=== PATIENT | female | born 2000 | race African-American/Black ===

== ENCOUNTER 2020-12-26 19:05 | Inpatient (IN) | payer SELFPAY ==
[2020-12-26] MEDS ORDERED: Acetaminophen 325 MG TAB PO PRN (21:15)
[2020-12-26] MEDS ORDERED: Ondansetron PF 4 MG/2 ML Vial IVP PRN (21:15)
[2020-12-26] MEDS ORDERED: Ondansetron ODT 4 MG TAB SL PRN (21:15)
[2020-12-26] MEDS: Sodium Chloride 0.9% 1,000 ML IV SCH (21:25)
[2020-12-26] MEDS ORDERED: Promethazine HCl 25 MG in Sodium Chloride 0.9% 50 ML IVPB PRN (22:29)
[2020-12-26 23:27] VITALS: BMI 20.4
[2020-12-27] MEDS: Sodium Chloride 0.9% 1,000 ML IV SCH ×2 (01:52→05:25)
[2020-12-27 07:28] LABS: #Basophils 0.1 thou/uL (0.0-0.2); #Neutrophils 6.5 thou/uL (1.40-6.50); %Basophils 0.7 % (0.0-1.0); %Eosinophils 0.1 % (0.0-10.0); %Lymphocytes 20.9 % (28.0-48.0); %Monocytes 10.2 % (0.0-4.0); %Neutrophils 68.2 % (31.0-61.0); Hemoglobin 9.4 g/dL (12.0-16.0); Mean Corpuscular HGB CONC 33.8 g/dL (32.0-36.0); Mean Corpuscular Hemoglobin 31.5 pg (25.0-35.0); Mean Platelet Volume 7.5 fL (7.4-10.4); Platelet Count 232 thou/uL (130-400); RBC Distribution Width 12.4 % (11.5-14.5); Red Blood Cell (RBC) Count 2.99 mill/uL (4.00-5.20); White Blood Cell (WBC) Count 9.5 thou/uL (4.8-10.8)
[2020-12-27 07:53] LABS: ALT (SGPT) 28 U/L (8-55); AST (SGOT) 63 U/L (5-34); Alkaline Phosphatase 53 U/L (40-100); Anion Gap 8 mmol/L (10-20); BUN (Urea Nitrogen) 5 mg/dL (7.0-18.7); Bilirubin, Total 0.6 mg/dL (0.2-1.2); Calc. Creatinine Clearance 129 mL/min (70-130); Calcium 7.3 mg/dL (7.8-10.44); Carbon Dioxide 24 mmol/L (22-29); Chloride 112 mmol/L (98-107); Globulin 2.3 g/dL (2.4-3.5); Glucose 81 mg/dL (70-105); Magnesium 1.5 mg/dL (1.7-2.2); Phosphorus 2.3 mg/dL (2.3-4.7); Potassium 3.2 mmol/L (3.5-5.1); Protein, Total 5.3 g/dL (6.0-8.3); Sodium 141 mmol/L (136-145)
[2020-12-27 08:05] LABS: CK (CPK) 4580 U/L (29-168)
[2020-12-27] MEDS: Enoxaparin Sodium 40 MG/0.4 ML SYRINGE SC SCH (08:20)
[2020-12-27] MEDS ORDERED: Lactated Ringer's 1,000 ML IV SCH (10:00)
[2020-12-27] MEDS: Lactated Ringer's 1,000 ML IV SCH ×3 (10:16→21:02)
[2020-12-27] MEDS: Potassium Chloride 20 MEQ TAB PO SCH ×2 (10:16→12:43)
[2020-12-27] MEDS ORDERED: Magnesium Sulfate 4 GM in Sodium Chloride 0.9% 250 ML 250 ML IVPB SCH (11:00)
[2020-12-28] MEDS: Lactated Ringer's 1,000 ML IV SCH ×3 (03:25→13:21)
[2020-12-28 07:51] VITALS: BP 104/65; TEMP 98.8
[2020-12-28 07:56] LABS: ALT (SGPT) 48 U/L (8-55); AST (SGOT) 79 U/L (5-34); Albumin 2.9 g/dL (3.5-5.0); Alkaline Phosphatase 56 U/L (40-100); Anion Gap 8 mmol/L (10-20); BUN (Urea Nitrogen) Less than 4 mg/dL (7.0-18.7); Bilirubin, Total 0.3 mg/dL (0.2-1.2); CK (CPK) 3098 U/L (29-168); Calc. Creatinine Clearance 129 mL/min (70-130); Carbon Dioxide 26 mmol/L (22-29); Chloride 112 mmol/L (98-107); Globulin 2.3 g/dL (2.4-3.5); Glucose 80 mg/dL (70-105); Magnesium 1.9 mg/dL (1.7-2.2); Phosphorus 2.4 mg/dL (2.3-4.7); Potassium 3.7 mmol/L (3.5-5.1); Protein, Total 5.2 g/dL (6.0-8.3); Sodium 142 mmol/L (136-145)
[2020-12-28 08:08] LABS: #Basophils 0.1 thou/uL (0.0-0.2); #Eosinphils 0.1 thou/uL (0.0-0.7); #Lymphocytes 1.8 thou/uL (1.20-3.40); #Monocytes 0.5 thou/uL (0.11-0.59); #Neutrophils 2.6 thou/uL (1.40-6.50); %Basophils 1.2 % (0.0-1.0); %Eosinophils 1.8 % (0.0-10.0); %Lymphocytes 36.3 % (28.0-48.0); %Monocytes 9.1 % (0.0-4.0); %Neutrophils 51.7 % (31.0-61.0); Hemoglobin 9.9 g/dL (12.0-16.0); Mean Corpuscular HGB CONC 34.5 g/dL (32.0-36.0); Mean Corpuscular Hemoglobin 32.2 pg (25.0-35.0); Mean Corpuscular Volume 93.3 fL (78.0-98.0); Mean Platelet Volume 7.7 fL (7.4-10.4); Platelet Count 247 thou/uL (130-400); RBC Distribution Width 12.5 % (11.5-14.5); Red Blood Cell (RBC) Count 3.08 mill/uL (4.00-5.20)
[2020-12-28] MEDS: Enoxaparin Sodium 40 MG/0.4 ML SYRINGE SC SCH (08:18)
[2020-12-28] MEDS ORDERED: Potassium Chloride 20 MEQ TAB PO SCH (08:45)
[2020-12-28] MEDS ORDERED: Magnesium Sulfate 2 GM in Sodium Chloride 0.9% 100 ML IVPB SCH (08:45)
[2020-12-28] MEDS ORDERED: Lactated Ringer's 1,000 ML IV SCH (08:45)
[2020-12-28] MEDS ORDERED: Magnesium 2 GM/50 ML 2 GM in Premix Bag 1 BAG IVPB SCH (09:00)
[2020-12-29] MEDS ORDERED: FLU VACC QS2021-22(6MOS UP)/PF 60 MCG/0.5 ML SYRINGE IM ONE (21:00)
== END 2020-12-28 15:45 | disposition home or self-care (01) | DRG 558 ==
LOC: INTOOBSV 19:05 → T4-A 19:05 → OBSVTOIN 12-27 15:59
PROVIDERS: ADMIT Internal Medicine; ATTEND Internal Medicine
DX: M62.82 Rhabdomyolysis (principal); E87.6 Hypokalemia; R10.9 Unspecified abdominal pain; R11.0 Nausea
CPT/HCPCS: 36415; 80053; 82550; 83735; 84100; 85025; 96372; 96374; G0378; J1650; J3475; J7050; J7120